=== PATIENT | male | born 1985 | race Caucasian/White ===

== ENCOUNTER 2020-12-02 15:55 | Emergency (ER) | payer MEDICAID, OTHER ==
[~2020-12-02] VITALS: Ht 188 cm; Wt 104.5 kg
[~2020-12-02 15:55] MED LIST: BACI3.5O2 OP; BUPR2TAB SL
[2020-12-02 16:25] VITALS: BP 104/74
[2020-12-02] MEDS ORDERED: CefTRIAXone 1000mg IM Kit (w/lidocaine diluent) IM STA (17:04)
[2020-12-02] MEDS ORDERED: DOXYCYCLINE 100MG CAPSULE PO ONE (17:05)
[2020-12-02] MEDS ORDERED: DOXY-1 PO (17:09)
--- NOTE | 2020-12-02 18:40 | NUR ---
PT WAS SEEN AND TREATED BY ARPAN MIRZA. NO NURSING NOTES WRITTEN.
== END 2020-12-02 18:40 | disposition home or self-care (01) ==
LOC: ER 15:56
DX: N45.1 Epididymitis (principal); F12.10 Cannabis abuse, uncomplicated
CPT/HCPCS: 36415; 87491; 87591; 96372; 99283; J0696